=== PATIENT | female | born 1955 | race Caucasian/White ===

== ENCOUNTER 2016-08-28 07:06 | Outpatient (CLI) | payer MEDICAID | END 2016-08-28 07:07 | disposition home or self-care (01) | DX: G25.81 Restless legs syndrome (principal); E66.9 Obesity, unspecified; Z13.6 Encounter for screening for cardiovascular disorders ==

== ENCOUNTER 2016-09-17 10:03 | Outpatient (CLI) | payer MEDICAID | END 2016-09-17 10:04 | disposition home or self-care (01) | DX: R73.01 Impaired fasting glucose (principal) ==

== ENCOUNTER 2016-10-08 10:48 | Outpatient (CLI) | payer MEDICAID, MEDICARE | END 2016-10-08 10:49 | disposition home or self-care (01) | DX: Z12.39 Encounter for other screening for malignant neoplasm of breast (principal); N64.59 Other signs and symptoms in breast; D17.1 Benign lipomatous neoplasm of skin and subcutaneous tissue of trunk | CPT/HCPCS: 76642; G0206 ==

== ENCOUNTER 2017-02-12 09:28 | Outpatient (CLI) | payer MEDICARE | END 2017-02-12 09:29 | disposition home or self-care (01) | LOC: LAB.F 09:28 | PROVIDERS: ATTEND Nurse Practitioner Family | DX: Z78.9 Other specified health status (principal) | CPT/HCPCS: 36415; 86803 ==

== ENCOUNTER 2017-06-18 08:54 | Outpatient (CLI) | payer MEDICARE ==
--- NOTE | 2017-06-20 15:22 | Mammography Report ---
DIGITAL BILATERAL SCREENING MAMMOGRAM: 06/18/2017 COMPARISON: Mammogram of 10/08/2016. INDICATION: Screening mammography. TECHNIQUE: Routine CC and MLO projections were obtained of the breasts. FINDINGS: Parenchymal tissue within both breasts is heterogeneously dense, which may lower the sensi tivity of mammography; however, there are no dominant masses, suspicious microcalcifications, or seco ndary signs of malignancy. In comparison to the previous studies, there are no significant changes. ASSESSMENT: NO MAMMOGRAPHIC EVIDENCE OF MALIGNANCY. NO SIGNIFICANT INTERVAL CHANGES. RECOMMENDATION: Screening mammography is recommended annually. BIRADS category 1 - negative. STANDARD QUALIFYING STATEMENTS 1. This examination was reviewed with the aid of Computed-Aided Detection (CAD). 2. A negative or benign imaging report should not delay biopsy if clinically suspicious findings are present. Consider surgical consultation if warranted. More than 5% of cancers are not identified by i maging. 3. Dense breasts may obscure an underlying neoplasm. JOB #: [id number] EXT JOB #:[id number]
== END 2017-06-18 08:55 | disposition home or self-care (01) ==
LOC: DI 08:54
PROVIDERS: ATTEND Nurse Practitioner Family
DX: Z12.31 Encounter for screening mammogram for malignant neoplasm of breast (principal)
CPT/HCPCS: 77067

== ENCOUNTER 2017-08-22 17:01 | Emergency (ER) | payer MEDICAID, MEDICARE ==
[2017-08-22 17:10] VITALS: BP 135/78
== END 2017-08-22 18:22 | disposition left against medical advice (07) ==
LOC: ED 17:01
DX: Z53.21 Procedure and treatment not carried out due to patient leaving prior to being seen by health care provider (principal)
CPT/HCPCS: 80053; 83690; 85025

== ENCOUNTER 2018-04-14 21:08 | Day surgery (SDC) | payer MEDICARE ==
[2018-04-14] MEDS ORDERED: MORPHINE 10 MG/ML VIAL IVP STA (21:26)
[2018-04-14] MEDS ORDERED: SODIUM CHLORIDE 0.9% 1,000 ML IV ONE ×2 (21:26→22:50)
[2018-04-14] MEDS ORDERED: ONDANSETRON 4 MG/2 ML VIAL IVP STA ×2 (21:26→23:50)
--- NOTE | 2018-04-14 21:29 | ED Physician Documentation ---
PD HPI ABD PAIN - Stated complaint Stated Complaint: ABD PX/N/V - Chief complaint Chief Complaint: Abd Pain - History obtained from History obtained from: Patient - History of Present Illness Timing - onset: Today Timing - details: Gradual onset, Still present Quality: Cramping, Aching Location: RLQ Radiation: Lower back Worsened by: Position, Palpation Associated symptoms: Fever, Nausea, Vomiting. No: Diarrhea, Constipation Similar symptoms before: Has not had sx before Recently seen: Not recently seen - Additional information Additional information: Patient is a 62 year old female who is presenting to the emergency department for right lower quadrant pain, nausea vomiting shaking and chills. Patient states that the symptoms started today and have lasted throughout the day. Patient denies any recent travel, or sick contacts. Review of Systems Constitutional: reports: Chills, Sweats Eyes: reports: Reviewed and negative Cardiac: denies: Chest pain / pressure, Palpitations Respiratory: denies: Dyspnea, Cough GI: reports: Abdominal Pain, Nausea, Vomiting. 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 HEENT: Tonsil/Adenoidectomy - Present Medications Home Medications: Ambulatory Orders Medication Instructions Recorded Confirmed Citalopram [CeleXA] 1 tab PO DAILY 04/14/18 04/14/18 - Allergies Allergies/Adverse Reactions: Allergies Allergy/AdvReac Type Severity Reaction Status Date / Time codeine AdvReac Intermediate Nausea Verified 04/14/18 21:15 PD ED PE NORMAL - Vitals Vital signs reviewed: Yes - General General: Alert and oriented X 3 - HEENT HEENT: Atraumatic - Respiratory Respiratory: No respiratory distress, Clear bilaterally - Derm Derm: Normal color - Extremities Extremities: No deformity - Neuro Neuro: Alert and oriented X 3 Eye Opening: Spontaneous PD ED PE EXPANDED - General General: Alert - HEENT HEENT: Dry mucous membranes - Abdomen Abdomen: Tender to palpation, RLQ Results - Vitals Vitals: Vital Signs - 24 hr 04/14/18 04/14/18 21:14 23:25 Temperature 36.3 C L 36.9 C Heart Rate 105 H 94 Respiratory 20 16 Rate Blood Pressure 151/90 H 171/74 H O2 Saturation 98 94 Oxygen O2 Source Room air - Labs Labs: Laboratory Tests 04/14/18 04/14/18 04/14/18 21:32 21:45 21:45 WBC 13.7 H RBC 5.10 Hgb 15.0 Hct 43.7 MCV 85.7 MCH 29.4 MCHC 34.3 RDW 13.0 Plt Count 229 MPV 8.4 Neut # (Auto) 13.2 H Lymph # (Auto) 0.4 L Coos # (Auto) 0.1 Eos # (Auto) 0.0 Baso # (Auto) 0.0 Absolute Nucleated RBC 0.00 Nucleated RBC % 0.0 Sodium 138 Potassium 3.4 L Chloride 100 L Carbon Dioxide 26 Anion Gap 12.0 BUN 14 Creatinine 0.9 Estimated GFR (MDRD) 63 L Glucose 201 H Lactic Acid Calcium 9.6 Total Bilirubin 1.4 H AST 35 ALT 28 Alkaline Phosphatase 81 Total Protein 8.2 Albumin 4.9 Globulin 3.3 Albumin/Globulin Ratio 1.5 Lipase 31 Urine Color LT. YELLOW Urine Clarity CLEAR Urine pH 7.0 Ur Specific [place] 1.020 Urine Protein TRACE Urine Glucose (UA) 100 H Urine Ketones NEGATIVE Urine Occult Blood NEGATIVE Urine Nitrite NEGATIVE Urine Bilirubin NEGATIVE Urine Urobilinogen 0.2 (NORMAL) Ur Leukocyte Esterase NEGATIVE Ur Microscopic Review NOT INDICATED Urine Culture Comments NOT INDICATED 04/14/18 21:45 WBC RBC Hgb Hct MCV MCH MCHC RDW Plt Count MPV Neut # (Auto) Lymph # (Auto) Coos # (Auto) Eos # (Auto) Baso # (Auto) Absolute Nucleated RBC Nucleated RBC % Sodium Potassium Chloride Carbon Dioxide Anion Gap BUN Creatinine Estimated GFR (MDRD) Glucose Lactic Acid 3.3 H* Calcium Total Bilirubin AST ALT Alkaline Phosphatase Total Protein Albumin Globulin Albumin/Globulin Ratio Lipase Urine Color Urine Clarity Urine pH Ur Specific [place] Urine Protein Urine Glucose (UA) Urine Ketones Urine Occult Blood Urine Nitrite Urine Bilirubin Urine Urobilinogen Ur Leukocyte Esterase Ur Microscopic Review Urine Culture Comments - Rads (name of study) ct abd pelvis Radiology: Final report received (acute appendicitis) PD MEDICAL DECISION MAKING - ED course Complexity details: reviewed old records, reviewed results, re-evaluated patient , considered differential, d/w patient, d/w product/industry consultant ED course: patient was seen and examined at bedside. Iv access was gained and labs were drawn. patient was started on fluid bolus, treated with morphine and zofran. Imaging was ordered. When patient returned from imaging the results were reviewed. patient was found to have acute appendicits. patient was started on zosyn. case was discussed with the numerical control machine tool operator surgeon. Patient was placed in observation for surgery the next day. - Sepsis Event Vital Signs: Vital Signs - 24 hr 04/14/18 04/14/18 21:14 23:25 Temperature 36.3 C L 36.9 C Heart Rate 105 H 94 Respiratory 20 16 Rate Blood Pressure 151/90 H 171/74 H O2 Saturation 98 94 Oxygen O2 Source Room air Departure - Departure Disposition: ED Place in Observation Clinical Impression: Appendicitis, acute Condition: Stable
[2018-04-14 21:35] LABS: BILIRUBIN,URINE NEGATIVE (NEGATIVE); GLUCOSE, URINE (UA) 100 mg/dL (NEGATIVE); KETONES,URINE (UA) NEGATIVE (NEGATIVE); LEUKOCYTE ESTERASE, URINE NEGATIVE (NEGATIVE); NITRITE,URINE NEGATIVE (NEGATIVE); OCCULT BLOOD,URINE NEGATIVE (NEGATIVE); PROTEIN,URINE TRACE mg/dL (NEGATIVE); UROBILINOGEN,URINE 0.2 (NORMAL) E.U./dL (NORMAL)
[2018-04-14 21:36] LABS: CLARITY,URINE CLEAR (CLEAR)
[2018-04-14] MEDS ORDERED: IOPAMIDOL-300 100 ML VIAL ONE (21:46)
[2018-04-14 21:48] LABS: BASOPHILS % (AUTO) 0.2 %; EOSINOPHILS % (AUTO) 0.1 %; LYMPHOCYTES # (AUTO) 0.4 10^3/uL (1.5-3.5); LYMPHOCYTES % (AUTO) 3.2 %; MEAN CORPUSCULAR HEMOGLOBIN 29.4 pg (27.0-31.0); MEAN CORPUSCULAR HGB CONC 34.3 g/dL (32.0-36.0); MEAN CORPUSCULAR VOLUME 85.7 fL (81.0-99.0); MEAN PLATELET VOLUME 8.4 fL (7.9-10.8); MONOCYTES # (AUTO) 0.1 10^3/uL (0.0-1.0); MONOCYTES % (AUTO) 0.6 %; NEUTROPHILS # (AUTO) 13.2 10^3/uL (1.5-6.6); NEUTROPHILS % (AUTO) 95.9 %; PLT - PLATELET COUNT 229 10^3/uL (130-450); WHITE BLOOD COUNT 13.7 x10^3/uL (4.8-10.8)
[2018-04-14 22:02] LABS: ALBUMIN 4.9 g/dL (3.2-5.5); ALBUMIN/GLOBULIN RATIO 1.5 (1.0-2.2); BILIRUBIN,TOTAL 1.4 mg/dL (0.2-1.0); CALCIUM 9.6 mg/dL (8.5-10.3); CREATININE 0.9 mg/dL (0.4-1.0); TOTAL PROTEIN 8.2 g/dL (6.7-8.2)
[2018-04-14] MEDS ORDERED: IOPAMIDOL-300 100 ML VIAL IVP ONE (22:25)
--- NOTE | 2018-04-14 22:48 | CT Report ---
Procedure Date: 04/14/2018 Accession Number: [id number] / [id number] Procedure: CT - Abdomen/Pelvis W/ CPT Code: FULL RESULT: EXAM: CT ABDOMEN AND PELVIS WITH CONTRAST. EXAM DATE: 04/14/2018 10:26 PM. CLINICAL HISTORY: Right lower quadrant pain, fever vomiting. COMPARISONS: Abdomen 01/15/2012. TECHNIQUE: Routine helical CT imaging was performed through the abdomen and pelvis. IV contrast: Yes . Enteric contrast: No . Reconstructions: Coronal and sagittal. In accordance with CT protocol optimization, one or more of the following dose reduction techniques were utilized for this exam: automated exposure control, adjustment of mA and/or KV based on patient size, or use of iterative reconstructive technique. FINDINGS: Lung Bases: Unremarkable. Liver: Scattered cysts and/or hemangiomas. No definitively suspicious masses. Gallbladder/Bile Ducts: Unremarkable. Spleen: Unremarkable. Pancreas: Unremarkable. Adrenal Glands: Unremarkable. Kidneys: Unremarkable. No suspicious masses or hydronephrosis. Peritoneal Cavity/Bowel: Abnormal inflamed appendix is best visualized on axial images 66 through 69 in the anterolateral right pelvis with a maximum diameter of 11 mm and mild surrounding inflammatory changes. Appendicoliths present. No gross perforation or abscess. Bowel otherwise appears unremarkable. Pelvic Organs: Bladder, uterus, and adnexa appear unremarkable. Vasculature: No aneurysms or other significant abnormality. Bones: No significant abnormality. Other: None. IMPRESSION: Acute appendicitis without apparent complication. RADIA
[2018-04-14] MEDS ORDERED: PIPERACILLIN/TAZOBACTAM 4.5 GM in SODIUM CHLORIDE 0.9% MINIBAG 100 ML IV STA (23:28)
[2018-04-15] MEDS ORDERED: LACTATED RINGERS 1,000 ML IV SCH (01:00)
--- NOTE | 2018-04-15 01:44 | CONSULTATION NOTE ---
Referring Provider Name of Referring Provider:: Dr. Raoul Adan Consult Date: 04/14/18 Chief Complaint - Chief Complaint Chief Complaint: RLQ pain History of Present Illness - Admitted From Admitted From:: [facility] ED to outpatient - History Obtained From Records Reviewed: Yes History obtained from: Patient and chart Exam Limitations: None - History of Present Illness HPI Comment/Other: Dr. Raoul Adan called me on consultation to evaluate this very pleasant 62 -year-old female for a less than 24 hour history of right lower quadrant pain associated with nausea, vomiting and chills. There is no history of antecedent travel or anyone else sick at home. The pain is worsened with motion and is not worsened (not alleviated) with standing still. The patient is not particularly hungry. 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 HEENT: reports: Tonsil/Adenoidectomy Meds/Allgy - Home Medications Home Medications: Ambulatory Orders Medication Instructions Recorded Confirmed Citalopram [CeleXA] 1 tab PO DAILY 04/14/18 04/14/18 - Allergies Allergies/Adverse Reactions: Allergies Allergy/AdvReac Type Severity Reaction Status Date / Time codeine AdvReac Intermediate Nausea Verified 04/14/18 21:15 Review of Systems - Constitutional Constitutional: reports: Fever, Chills, Poor appetite (=) - Gastrointestinal Gastrointestinal: reports: Abdominal pain (RLQ), Nausea, Vomiting Exam - Vital Signs Reviewed Vital Signs: Yes Vital Signs: Vital Signs x48h Temp Pulse Resp BP Pulse Ox 04/14/18 23:25 36.9 C 94 16 171/74 H 94 04/14/18 21:14 36.3 C L 105 H 20 151/90 H 98 - Physical Exam General Appearance: positive: No acute distress, Lethargic Eyes Bilateral: positive: No lid inflammation, Conjunctivae nml, No scleral icterus ENT: positive: Dry mucous membranes Neck: positive: Trachea midline Respiratory: positive: Chest non-tender, No respiratory distress, Breath sounds nml Cardiovascular: positive: Regular rate & rhythm (Slightly quick at 95.) Abdomen: positive: Nml bowel sounds, Tenderness (In RLQ at McBurneys point.) Extremities: positive: Nml appearance Neurologic/Psychiatric: positive: Oriented x3 Conclusion/Plan - Diagnosis Diagnosis: Acute appendicitis. - Plan Plan: Laparoscopic appendectomy, possible open appendectomy. The indications, procedure, alternatives including no surgery, possible risks including infection (deep or superficial), bleeding requiring transfusion (with all of its risks), and were fully explained to the patient and all questions answered. I also explained the pathophysiology. I explained that following the surgery I did not want her lifting anything over 15 pounds for 6 weeks to allow for optimal healing and to decrease the likelihood that a hernia would occur. All questions were fully answered. Verbal and written consent was obtained. The patient, in preparation for surgery will be nothing by mouth, and receive 3.375 g of Zosyn with induction. I asked her to contact me with any surgical questions and her concerns and she stated that she would. I asked her to let me know if there is any way we can make her stay at [facility] more comfortable and she stated that she would let me know. The plan is to do this operation as an outpatient procedure and to discharge her home following the procedure. 45 minutes of [id number] time spent with the patient, over 80% in discussion, coordination of her care, and completion of the requisite paperwork - Lab Results Lab results reviewed: Yes Fish Bones: 04/14/18 21:45 04/14/18 21:45 - Diagnostic Imaging Results Diagnostic Imaging Results: positive: Final report reviewed, Read independently
[2018-04-15] MEDS ORDERED: PIPERACILLIN/TAZOBACTAM 3.375 GM in SODIUM CHLORIDE 0.9% MINIBAG 100 ML IV SCH (06:00)
--- NOTE | 2018-04-15 06:59 | ANESTHESIA ---
Pre-Anesthesia VS, & Labs - Diagnosis Diagnosis Acute appendicitis. - Procedure Laparoscopic Appendectomy Vital Signs: Temp Pulse Resp BP Pulse Ox 36.9 C 94 16 171/74 H 94 04/14/18 23:25 04/14/18 23:25 04/14/18 23:25 04/14/18 23:25 04/14/18 23:25 Height 5 ft 2 in Weight (kg) 88.451 kg Body Mass Index 35.6 - NPO >8 hours - Is Patient ?: No - Lab Results Lab results reviewed: Yes Fish Bones: 04/14/18 21:45 04/14/18 21:45 Home Medications and Allergies Home Medications: Ambulatory Orders Medication Instructions Recorded Confirmed Citalopram [CeleXA] 1 tab PO DAILY 04/14/18 04/14/18 Allergies/Adverse Reactions: Allergies Allergy/AdvReac Type Severity Reaction Status Date / Time codeine AdvReac Intermediate Nausea Verified 04/14/18 21:15 Anes History & Medical History - Anesthetic History Anesthesia Complications: reports: No previous complications Family history of Anesthesia Complications: Denies Family history of Malignant Hyperthermia: Denies - Medical History Cardiovascular: reports: Hypertension Pulmonary: reports: None Gastrointestinal: reports: GERD (Occassional), Hiatal hernia, Hemorrhoids Urinary: reports: None Neuro: reports: None Musculoskeletal: reports: Osteoarthritis Endocrine/Autoimmune: reports: None Blood Disorders: reports: None Skin: reports: None Smoking Status: Former smoker (quit 35 years ago) Psychosocial: reports: Depression - Surgical History General: EGD, Colonoscopy Eyes Ears Nose Throat (EENT): Tonsil/Adenoidectomy Gynecologic: Oophrectomy Orthopedic: Knee replacement, Rotator cuff repair Results - EKG Results EKG Comparison: No prior EKG Plan Anesthesia Type: General Consent for Procedure(s) Verified and Reviewed: Yes Code Status: Attempt Resuscitation ASA classification: 2-Mild systemic disease Is this case an emergency?: Yes
[2018-04-15] MEDS ORDERED: BUPIVACAINE 0.5% PF 30 ML VIAL ONE (07:08)
[2018-04-15] MEDS ORDERED: LACTATED RINGERS 1,000 ML IV ONE ×2 (07:20→08:16)
[2018-04-15] MEDS ORDERED: PROPOFOL 200 MG/20 ML VIAL IVP ONE (08:00)
[2018-04-15] MEDS ORDERED: MIDAZOLAM 2 MG/2 ML VIAL IVP ONE (08:00)
[2018-04-15] MEDS ORDERED: fentaNYL 250 MCG/5 ML VIAL IVP ONE (08:00)
[2018-04-15] MEDS ORDERED: SUCCINYLCHOLINE 200 MG/10 ML VIAL IVP ONE (08:00)
[2018-04-15] MEDS ORDERED: ROCURONIUM 50 MG/5 ML VIAL IVP ONE (08:00)
[2018-04-15] MEDS ORDERED: DEXAMETHASONE 4 MG/ML VIAL IVP ONE (08:00)
[2018-04-15] MEDS ORDERED: LIDOCAINE-MPF 2% 5 ML VIAL IM ONE (08:00)
[2018-04-15] MEDS ORDERED: ePHEDrine 50 MG/ML VIAL IVP ONE (08:00)
[2018-04-15] MEDS ORDERED: BUPIVACAINE 0.5% PF 30 ML VIAL SUBQ ONE (08:30)
--- NOTE | 2018-04-15 09:23 | OPERATIVE REPORT ---
Operative Report - General Procedure Date: 04/15/18 Planned Procedure: Laparoscopic appendectomy Pre-Op Diagnosis: Acute appendicitis Procedure Performed: Laparoscopic appendectomy and umbilical herniorrhaphy Post Op Diagnosis: Acute nonperforated appendicitis and umbilical hernia - Procedure Note Primary Surgeon: Leonardo Carlos MD Anesthesia Provider: Anuj Marvin CRNA Anesthesia Technique: General ET tube, Local (30 mL of half percent Marcaine) IV Fluids (mL): 800 Estimated Blood Loss (mL): 5 Complications: None. - Other Other Information/Narrative: OPERATIVE DESCRIPTION/REPORT: After verbal and written informed consent was obtained detailing the risks of infection, bleeding requiring transfusion with its risks, and , and after I met with the patient confirming the surgery and the site of the surgery, the patient was brought to the operative suite and placed supine on the operating table. Great care was taken to avoid pressure points to prevent pressure necrosis or nerve injury. Monitoring devices were applied along with TEDs and pneumatic compressive stockings (to prevent DVT). The patient received preoperative antibiotics for surgical prophylaxis. Anuj Marvin CRNA sedated and anesthetized the patient for the entire procedure. The patient was prepped and draped in the usual sterile manner. With the patient draped my initials were clearly visible. A "time in" then confirmed that the patient was identified with 3 identifiers (name, date and medical record number), the history and physical was in the chart, the signed consent confirming the procedure was in the chart, the patient was in the correct position, the aforementioned prophylactic measures were in place or given, we had the correct personnel and equipment to complete the procedure and that anesthesia, surgery and nursing were given an opportunity to express any concerns. With the agreement of everyone in the room, we proceeded with the operation. A 2 cm incision was made just to the right of the umbilicus due to what had been removed out of the patient's umbilicus during the prep. The fascia was then cleared of subcutaneous tissue using a tonsil clamp and a small umbilical hernia was noted. I used the hernia defect to gain entry into the abdominal cavity without incident. A 12 mm blunt tipped balloon tipped Diamante port was placed into the abdomen and the balloon inflated to keep it in place. The pneumoperitoneum was then established using carbon dioxide insufflation to a steady state pressure of 15 mmHg. Two additional 5 mm ports were placed in the midline above and below the umbilicus. The patient was then rotated slightly to their left and slightly head down ( Trendelenberg). A small adhesion was photographed and cut. The appendix was clearly identified and noted to be thickened and clearly consistent with acute appendicitis. The end of the appendix was grasped with a Prestige grasper and lifted anteriorly thus revealing the appendiceal mesentery. The mesentery was taken using sequential application of the Ligasure until the base of the appendix was visualized without any adherent tissue. The base of the appendix was then stapled and transected using a laparoscopic vascular stapler. Visualization of the staple line revealed absolutely no bleeding or leak of bowel contents. Photographs were taken. The appendix was then place into an endopouch for the remainder of the case. The patient was then rotated to lie flat. The fascia and skin were then injected with the 30 cc of % marcaine for pain control. The insufflation was released and the ports removed. With the removal of the umbilical port the Endopouch containing the appendix was also removed. The fascial defect was then approximated using two 0-Vicryl figure-8 sutures taking care to bury the knots thus repairing the umbilical hernia. The skin incisions were approximated with 4-0 Monocryl in a subcuticular fashion. The surgical prep was removed, the skin was prepped with benzoin and steristrips were applied. A dressing was applied. At this point a time out was performed that confirmed that all the counts were correct, the procedure that was performed, the blood loss, the urine output, the IV fluids administered, and the patients condition. Having tolerated the procedure well, the patient was subsequently extubated and taken to recovery room in good and stable condition. [employer] disclaimer: This document was created in part using voice recognition technology. Because of the inherent limitations of the system ([employer]'s [employer] D[employer]ate user manual states that the licensee understands that speech recognition is a statistical process and that recognition errors are inherent in the process), occasional same sounding word substitutions and grammatical errors do occur and persist despite proofreading. Please read this document for context.
[2018-04-15] MEDS ORDERED: ACETAMINOPHEN 1,000 MG/100 ML 100 ML IV ONE (09:31)
[2018-04-15 10:59] VITALS: BP 118/68
== END 2018-04-15 00:31 | disposition home or self-care (01) ==
LOC: ED 21:08 → SDS 04-15 00:30
PROVIDERS: ATTEND Surgery
PROC: 0DTJ4ZZ Resection of Appendix, Percutaneous Endoscopic Approach (ICD-10-PCS; principal; 2018-04-15 07:30)
DX: K35.80 Unspecified acute appendicitis (principal); K42.9 Umbilical hernia without obstruction or gangrene; I10 Essential (primary) hypertension; K21.9 Gastro-esophageal reflux disease without esophagitis; K44.9 Diaphragmatic hernia without obstruction or gangrene; F32.9 Major depressive disorder, single episode, unspecified; Z79.899 Other long term (current) drug therapy; Z87.891 Personal history of nicotine dependence
CPT/HCPCS: 36415; 44970; 74177; 80053; 81003; 83605; 83690; 85025; 96361; 96365; 96366; 96375; 96376; 99284; J0131; J0330; J3010; J7120; Q9967; 81001; 87086; 96367

== ENCOUNTER 2018-06-23 19:06 | Emergency (ER) | payer MEDICARE ==
[2018-06-23 19:18] VITALS: BP 177/102
--- NOTE | 2018-06-23 20:14 | ED Physician Documentation ---
PD HPI UPPER EXT INJURY - Stated complaint Stated Complaint: GLF/RT ARM PX - Chief complaint Chief Complaint: Ext Problem - History obtained from History obtained from: Patient - History of Present Illness Location: Right (She tripped over her shoes and fell with her arm out hitting the floor. She has severe below the shoulder. No other injuries. 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 : None HEENT: None Psych: None Musculoskeletal: Osteoarthritis Derm: None - Past Surgical History Past Surgical History: Yes General: Appendectomy, Colonoscopy, EGD Ortho: Knee replacement, 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 HEENT: Tonsil/Adenoidectomy - Present Medications Home Medications: Ambulatory Orders Medication Instructions Recorded Confirmed Citalopram [CeleXA] 1 tab PO DAILY 04/14/18 04/14/18 - Allergies Allergies/Adverse Reactions: Allergies Allergy/AdvReac Type Severity Reaction Status Date / Time codeine AdvReac Intermediate Nausea Verified 06/23/18 19:18 - Social History Does the pt smoke?: No Smoking Status: Never smoker Does the pt drink ETOH?: No Does the pt have substance abuse?: No - Immunizations Immunizations are current?: Yes - POLST Patient has POLST: No PD ED PE NORMAL - Vitals Vital signs reviewed: Yes - General General: Alert and oriented X 3, No acute distress - Neck Neck: Supple, no meningeal sign, No bony TTP - Cardiac Cardiac: RRR, No murmur - Respiratory Respiratory: No respiratory distress - Extremities Extremities: Other (Quite tender over the upper humerus on the right, unable to range the shoulder at all. Normal sensation over the deltoid and in all areas of the hand and flexion and extension at the wrist is normal as well as thumb extension.) - Neuro Neuro: Alert and oriented X 3, Normal speech - Psych Psych: Normal mood, Normal affect Results - Vitals Vitals: Vital Signs - 24 hr 06/23/18 19:10 Temperature 36.8 C Heart Rate 89 Respiratory 18 Rate Blood Pressure 177/102 H O2 Saturation 99 Oxygen O2 Source Room air Departure - Departure Disposition: 01 Home, Self Care Clinical Impression: Closed fracture of right proximal humerus Qualifiers: Encounter type: initial encounter Fracture morphology: other fracture Fracture alignment: nondisplaced Qualified Code(s): S42.294A - Other nondisplaced fracture of upper end of right humerus, initial encounter for closed fracture Condition: Good Record reviewed to determine appropriate education?: Yes Instructions: Humerus Fx Follow-Up: [facility] [Provider Group] - Within 1 week Comments: Your blood pressure was elevated today on check into the emergency department. This does not mean that you have hypertension, it is a common phenomenon to come to the emergency department and have elevated blood pressure. I recommend that you see your primary care physician within the week to have it rechecked when you are feeling better.
--- NOTE | 2018-06-23 20:19 | XRAY Report ---
Reason: fell foward and injuring r shoulder. Procedure Date: 06/23/2018 Accession Number: [id number] / [id number] Procedure: XR - Shoulder 3 View RT CPT Code: FULL RESULT: EXAM: RIGHT SHOULDER RADIOGRAPHY EXAM DATE: 06/23/2018 07:54 PM. CLINICAL HISTORY: Fall, pain COMPARISON: SHOULDER 3 VIEW LT 03/31/2014 9:52 AM. TECHNIQUE: 3 views. FINDINGS: Bones: There is comminuted fracture through the proximal right humerus. There is mild displacement. No clear evidence of extent of the tuberosities. Joints: No evidence of dislocation. Soft Tissues: No unexpected soft tissue findings. IMPRESSION: Transversely oriented, mildly displaced fracture through the proximal right humerus. No evidence of dislocation. RADIA
== END 2018-06-23 20:19 | disposition home or self-care (01) ==
LOC: ED 19:06
DX: I10 Essential (primary) hypertension (principal); S42.201A Unspecified fracture of upper end of right humerus, initial encounter for closed fracture; W01.0XXA Fall on same level from slipping, tripping and stumbling without subsequent striking against object, initial encounter
CPT/HCPCS: 99283

== ENCOUNTER 2018-11-27 08:00 | Outpatient (CLI) | payer MEDICARE ==
[2018-11-27 10:15] LABS: BASOPHILS # (AUTO) 0.1 10^3/uL (0.0-0.1); BASOPHILS % (AUTO) 1.1 %; EOSINOPHILS # (AUTO) 0.1 10^3/uL (0.0-0.7); EOSINOPHILS % (AUTO) 2.3 %; HGB - HEMOGLOBIN 13.8 g/dL (12.0-16.0); LYMPHOCYTES # (AUTO) 2.1 10^3/uL (1.5-3.5); LYMPHOCYTES % (AUTO) 35.8 %; MEAN CORPUSCULAR HEMOGLOBIN 29.4 pg (27.0-31.0); MEAN CORPUSCULAR HGB CONC 33.9 g/dL (32.0-36.0); MEAN CORPUSCULAR VOLUME 86.7 fL (81.0-99.0); MEAN PLATELET VOLUME 9.5 fL (7.9-10.8); MONOCYTES # (AUTO) 0.6 10^3/uL (0.0-1.0); MONOCYTES % (AUTO) 9.6 %; NEUTROPHILS # (AUTO) 3.1 10^3/uL (1.5-6.6); NEUTROPHILS % (AUTO) 51.2 %; PLT - PLATELET COUNT 227 10^3/uL (130-450); RED BLOOD COUNT 4.69 10^6/uL (4.20-5.40); RED CELL DISTRIBUTION WIDTH 13.1 % (12.0-15.0)
[2018-11-27 10:27] LABS: ALBUMIN 4.2 g/dL (3.2-5.5); ALBUMIN/GLOBULIN RATIO 1.4 (1.0-2.2); ALKALINE PHOSPHATASE 77 IU/L (42-121); ALT ALANINE AMINOTRANSFERASE 24 IU/L (10-60); AST ASPARTATE AMINOTRANSFERASE 26 IU/L (10-42); BILIRUBIN,TOTAL 1.2 mg/dL (0.2-1.0); BUN - BLOOD UREA NITROGEN 16 mg/dL (6-20); CALCIUM 9.5 mg/dL (8.5-10.3); CARBON DIOXIDE - CO2 27 mmol/L (21-32); CHLORIDE 100 mmol/L (101-111); CHOL/HDL RATIO 5.9 (<4.4); CHOLESTEROL 252 mg/dL; CREATININE 0.9 mg/dL (0.4-1.0); GFR - MDRD 63 (>89); GLUCOSE 121 mg/dL (70-100); HDL CHOLESTEROL 43 mg/dL; LDL CHOLESTEROL,CALCULATED 180 mg/dL; LDL/HDL RATIO 4.2 (<4.4); SODIUM 139 mmol/L (135-145); TOTAL PROTEIN 7.3 g/dL (6.7-8.2); VLDL CHOLESTEROL 29 mg/dL
[2018-11-27 10:44] LABS: HEMOGLOBIN A1C 0.55 g/dL; HEMOGLOBIN A1C % 5.5 % (4.6-6.2)
== END 2018-11-27 23:59 | disposition home or self-care (01) ==
LOC: LAB.F 08:00
PROVIDERS: ATTEND Nurse Practitioner Family
DX: Z13.6 Encounter for screening for cardiovascular disorders (principal); R73.01 Impaired fasting glucose; Z13.220 Encounter for screening for lipoid disorders
CPT/HCPCS: 36415; 80053; 80061; 83036; 83721; 84443; 85025

== ENCOUNTER 2018-12-05 10:41 | Outpatient (CLI) | payer MEDICARE ==
--- NOTE | 2018-12-08 10:40 | Mammography Report ---
Reason: SCREENING MAMMO FOR BREAST CANCER Procedure Date: 12/05/2018 Accession Number: [id number] / [id number] Procedure: JAKE - Screening Mammo w/Adalid CPT Code: FULL RESULT: EXAM: Screening Mammo w/Adalid DATE: 12/05/2018 11:23 AM CLINICAL HISTORY: Screening examination. TECHNIQUE: (B) - Bilateral CC and MLO views were obtained. COMPARISON: 06/18/2017 PARENCHYMAL PATTERN: (A) - The breasts demonstrate scattered fibroglandular densities bilaterally. FINDINGS: There are no suspicious masses, calcifications, or areas of distortion. IMPRESSION: Negative examination. BI-RADS category 1. RECOMMENDATION: (ANNUAL) - Recommend routine annual screening mammography. BI-RADS CATEGORY: (1) - Negative. STANDARD QUALIFYING STATEMENTS: 1. This examination was not reviewed with the aid of Computer-Aided Detection (CAD). 2. A negative or benign imaging report should not preclude biopsy if clinically suspicious findings are present. 3. Dense breasts may obscure an underlying neoplasm. 4. This examination was reviewed with the aid of 3D breast imaging (tomosynthesis).
== END 2018-12-05 10:42 | disposition home or self-care (01) ==
LOC: DI 10:41
PROVIDERS: ATTEND Nurse Practitioner Family
DX: Z12.31 Encounter for screening mammogram for malignant neoplasm of breast (principal)
CPT/HCPCS: 77063; 77067

== ENCOUNTER 2019-03-09 10:18 | Outpatient (CLI) | payer MEDICARE ==
[2019-03-09 10:52] LABS: BASOPHILS # (AUTO) 0.1 10^3/uL (0.0-0.1); BASOPHILS % (AUTO) 0.8 %; EOSINOPHILS # (AUTO) 0.1 10^3/uL (0.0-0.7); HGB - HEMOGLOBIN 13.5 g/dL (12.0-16.0); LYMPHOCYTES # (AUTO) 2.1 10^3/uL (1.5-3.5); LYMPHOCYTES % (AUTO) 34.2 %; MEAN CORPUSCULAR HEMOGLOBIN 29.3 pg (27.0-31.0); MEAN CORPUSCULAR HGB CONC 33.1 g/dL (32.0-36.0); MEAN CORPUSCULAR VOLUME 88.7 fL (81.0-99.0); MEAN PLATELET VOLUME 10.8 fL (7.9-10.8); MONOCYTES # (AUTO) 0.5 10^3/uL (0.0-1.0); MONOCYTES % (AUTO) 8.2 %; NEUTROPHILS # (AUTO) 3.3 10^3/uL (1.5-6.6); NEUTROPHILS % (AUTO) 54.5 %; PLT - PLATELET COUNT 194 10^3/uL (130-450); RED CELL DISTRIBUTION WIDTH 11.9 % (12.0-15.0)
[2019-03-09 11:09] LABS: ALBUMIN 4.4 g/dL (3.2-5.5); ALBUMIN/GLOBULIN RATIO 1.4 (1.0-2.2); BILIRUBIN,TOTAL 0.7 mg/dL (0.2-1.0); CALCIUM 9.5 mg/dL (8.5-10.3); CREATININE 0.9 mg/dL (0.4-1.0); TOTAL PROTEIN 7.5 g/dL (6.7-8.2)
== END 2019-03-09 10:19 | disposition home or self-care (01) ==
LOC: LAB 10:18
PROVIDERS: ATTEND Obstetrics & Gynecology
DX: Z01.818 Encounter for other preprocedural examination (principal); D06.9 Carcinoma in situ of cervix, unspecified
CPT/HCPCS: 36415; 80053; 85025; 86850; 86900; 86901; 93005

== ENCOUNTER 2019-03-10 07:37 | Day surgery (SDC) | payer MEDICARE ==
[2019-03-10] MEDS ORDERED: CEFAZOLIN SODIUM IN 0.9 % NACL 2 GM/100 ML BAG IV ONE (08:00)
[2019-03-10] MEDS ORDERED: LACTATED RINGERS 1,000 ML IV ONE ×2 (08:26→11:30)
[2019-03-10] MEDS ORDERED: BUPIVACAINE 0.25%-EPI 1:200000 PF 30 ML VIAL ONE (09:34)
--- NOTE | 2019-03-10 09:34 | ANESTHESIA ---
Pre-Anesthesia VS, & Labs - Diagnosis JOHAN III - Procedure total laparoscopic hysterectomy with bilateral salphingoopherectomy, cysto Vital Signs: Temp Pulse Resp BP Pulse Ox 36.1 C L 62 18 153/81 H 96 03/10/19 07:55 03/10/19 07:55 03/10/19 07:55 03/10/19 07:55 03/10/19 07:55 Height 5 ft 2 in Weight (kg) 84.2 kg Body Mass Index 34.7 - NPO >8 hours - Is Patient ?: No Home Medications and Allergies Citalopram [CeleXA] 1 tab PO DAILY 04/14/18 Allergies/Adverse Reactions: Allergies Allergy/AdvReac Type Severity Reaction Status Date / Time codeine AdvReac Intermediate Nausea Verified 06/23/18 19:18 Anes History & Medical History - Anesthetic History Anesthesia Complications: reports: No previous complications - Medical History Cardiovascular: reports: Hypertension Pulmonary: reports: None Gastrointestinal: reports: GERD, Hiatal hernia Urinary: reports: None Neuro: reports: None Musculoskeletal: reports: None Endocrine/Autoimmune: reports: None Blood Disorders: reports: None Skin: reports: None Smoking Status: Never smoker - Surgical History General: Appendectomy, Colonoscopy, EGD Eyes Ears Nose Throat (EENT): Tonsil/Adenoidectomy Gynecologic: Oophrectomy Orthopedic: Knee replacement, Rotator cuff repair Exam General: Alert Dental: WNL, Other (filling, intact) Mouth Opening: Greater than 4 Fingerbreadths Mallampati classification: II Thyromental Distance: greater than 6 cm Respiratory: Lungs clear Cardiovascular: Regular rate, Normal S1, Normal S2 Mental/Cognitive Status: Alert/Oriented X3 Plan Anesthesia Type: General Consent for Procedure(s) Verified and Reviewed: Yes Code Status: Attempt Resuscitation ASA classification: 2-Mild systemic disease Is this case an emergency?: No
[2019-03-10] MEDS ORDERED: METHYLENE BLUE 0.5% 50 MG/10 ML AMPULE ONE (09:36)
[2019-03-10] MEDS ORDERED: MIDAZOLAM 2 MG/2 ML VIAL IVP ONE (11:33)
[2019-03-10] MEDS ORDERED: KETOROLAC 30 MG/ML VIAL IVP ONE (11:33)
[2019-03-10] MEDS ORDERED: ONDANSETRON 4 MG/2 ML VIAL IVP ONE (11:33)
[2019-03-10] MEDS ORDERED: DEXAMETHASONE 4 MG/ML VIAL IVP ONE (11:33)
[2019-03-10] MEDS ORDERED: ePHEDrine 50 MG/ML VIAL IVP ONE (11:33)
[2019-03-10] MEDS ORDERED: GLYCOPYRROLATE 1 MG/5 ML VIAL IVP ONE (11:33)
[2019-03-10] MEDS ORDERED: ACETAMINOPHEN 1,000 MG/100 ML 100 ML IV ONE (11:33)
[2019-03-10] MEDS ORDERED: PROPOFOL 200 MG/20 ML VIAL IVP ONE (11:33)
[2019-03-10] MEDS ORDERED: NEOSTIGMINE 1 MG/1 ML 10 ML MDV IVP ONE (11:33)
[2019-03-10] MEDS ORDERED: fentaNYL 250 MCG/5 ML VIAL IVP ONE (11:33)
[2019-03-10] MEDS ORDERED: ROCURONIUM 50 MG/5 ML VIAL IVP ONE (11:33)
[2019-03-10] MEDS ORDERED: oxyCODONE 5 MG TABLET PO PRN (12:39)
[2019-03-10] MEDS ORDERED: HYDROmorphone 0.5 MG/0.5 ML SYRINGE IVP PRN (12:39)
[2019-03-10] MEDS ORDERED: ONDANSETRON 4 MG/2 ML VIAL IVP PRN (12:39)
--- NOTE | 2019-03-10 12:52 | OPERATIVE REPORT ---
Operative Report - General Procedure Date: 03/10/19 Planned Procedure: TLH with BSO and cysto Pre-Op Diagnosis: JOHAN III Procedure Performed: TLH with LSO and cysto Post Op Diagnosis: Same - Procedure Note Primary Surgeon: Shaun Thurman MD Secondary Surgeon: Cassie Shane MD Anesthesia Provider: Brianda Cullen CRNA Anesthesia Technique: General ET tube Pathology: Uterus with left overy IV Fluids (mL): 1,300 Estimated Blood Loss (mL): 25 Urine Output (mL): 500 Indications: JOHAN III Complications: none - Other Other Information/Narrative: Dictation # [id number]
--- NOTE | 2019-03-10 14:03 | OPERATIVE REPORT ---
DATE OF SERVICE: 03/10/2019 Physician: Shaun Thurman MD PREOPERATIVE DIAGNOSIS: Cervical intraepithelial neoplasia 3 on LEEP with glandular invasion. POSTOPERATIVE DIAGNOSIS: Cervical intraepithelial neoplasia 3 on LEEP with glandular invasion. PROCEDURE: Total laparoscopic hysterectomy with left salpingo-oophorectomy and cystoscopy. SURGEON: Shaun Thurman MD RESPIRATORY MEDICINE PHYSICIAN: Alesha Shane MD ANESTHESIA PROVIDER: Agustina Cullen CRNA ANESTHETIC: General via endotracheal tube. ESTIMATED BLOOD LOSS: 25 mL IV FLUIDS: 1300 mL URINE OUTPUT: 500 mL FINDINGS: Upon entering the abdominal cavity, there was evidence of an absent right tube and ovary. There was no scar tissue noted at this time. The appendix was surgically absent. There were minimal adhesions noted. Cystoscopy showed evidence of good urine flow through each ureter. PROCEDURE: Following adequate endotracheal anesthesia, the patient was placed in the supine position in Jamey stirrups. At this point, she was prepped and draped in the usual fashion. A timeout was performed, in which the patient's concerns were identified. A speculum was placed in the vagina. The cervix was visualized, grasped with a single-tooth tenaculum. It was then sounded, then dilated up to 7 mm. A VCare uterine manipulator was then inserted. There was some difficulty placing the cup; however, this was accomplished. 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 At this point, the peritoneal cavity was inspected and there was evidence of minimal adhesions. The VCare manipulator was protruding thru in the left cornua of the uterus. The right tube and ovary, absent, the left tube and ovary appeared to be postmenopausal. At this point, 2 additional ports were placed, both in the left and right lower quadrants following injection with 0.25% Marcaine and then skin incision with a #11 blade. Both of these were placed atraumatically. The right ureter was identified, and following this, the infundibulopelvic ligament was doubly cauterized and transected with the LigaSure. The round ligament was likewise doubly cauterized and then transected. The anterior leaf of the broad ligament was then opened and following this, the anterior leaf was cauterized and transected with the LigaSure. This was carried down to the internal os of the cervix and then traversing across the lower uterine segment. A bladder flap was developed utilizing the LigaSure. The uterine vessels on the right hand side were cauterized and transected. Care was taken to avoid any injury to the ureters. At this point, the left hand side was treated in a similar fashion, the ureter was first identified through the peritoneal wall; however, there was some fat making this difficult. The infundibulopelvic ligament was cauterized twice and transected with the LigaSure. This was then carried across the mesosalpinx and then the round ligament was doubly cauterized and transected. The anterior leaf of the broad ligament was then isolated and then divided utilizing LigaSure. This side was done by Dr. Shane. The uterine vessels on the left hand side were identified, cauterized, and transected. The cup of the VCare was easily palpated through the anterior fornix. Care was taken to take the bladder off the upper vaginal area. The vagina was then entered utilizing Harmonic scalpel and then the uterus was amputated from the apex of the vagina. the right-hand side was done by myself, Dr. Thurman. The left hand side was done by Dr. Shane. At this point, the uterus was brought into the vagina; however, because of its small size, it could not maintain a pneumoperitoneum. So an Asepto bulb was then placed in the vagina to achieve occlusion. The apex of the vagina was then closed utilizing an Endo Stitch with V-Loc suture. The total apex of the vagina was noted to be closed at this point. At this point, the right lower quadrant incision, which had been extended to a 10 mm incision, was closed utilizing a Matt-Aldair. The incisions were all closed using 4-0 Monocryl subcuticular and then Dermabond utilized. A cystoscopy performed showed evidence of good ureteral jets through both ureteral orifices. Patient tolerated the procedure well and was taken to recovery in stable condition. Sponge and needle counts were correct. TD: 03/10/2019 13:04 TJ
[2019-03-10] MEDS ORDERED: SODIUM CHLORIDE FLUSH 0.9% 10 ML SYRINGE ONE (17:10)
[2019-03-10 18:26] VITALS: BP 151/77
== END 2019-03-10 19:30 | disposition home or self-care (01) ==
LOC: SDS 07:37 → MS2 12:51 → SDS 19:30
PROVIDERS: ATTEND Obstetrics & Gynecology
PROC: 0UT14ZZ Resection of Left Ovary, Percutaneous Endoscopic Approach (ICD-10-PCS; 2019-03-10)
PROC: 0UT64ZZ Resection of Left Fallopian Tube, Percutaneous Endoscopic Approach (ICD-10-PCS; 2019-03-10)
PROC: 0UT94ZZ Resection of Uterus, Percutaneous Endoscopic Approach (ICD-10-PCS; principal; 2019-03-10 09:00)
PROC: 0UTC4ZZ Resection of Cervix, Percutaneous Endoscopic Approach (ICD-10-PCS; 2019-03-10 09:00)
DX: D06.9 Carcinoma in situ of cervix, unspecified (principal); I10 Essential (primary) hypertension; K21.9 Gastro-esophageal reflux disease without esophagitis
CPT/HCPCS: 58571; A9270; J0131; J0690; J3010; J7120

== ENCOUNTER 2020-04-20 13:20 | Outpatient (CLI) | payer MEDICARE ==
[2020-04-20 14:39] LABS: HEMOGLOBIN A1c% 5.6 % (4.27-6.07)
== END 2020-04-20 13:21 | disposition home or self-care (01) ==
LOC: LAB 13:20
PROVIDERS: ATTEND Registered Nurse
DX: E78.5 Hyperlipidemia, unspecified (principal)
CPT/HCPCS: 36415; 83036

== ENCOUNTER 2021-03-09 12:22 | Outpatient (CLI) | payer MEDICARE ==
--- NOTE | 2021-03-09 16:12 | XRAY Report ---
PROCEDURE: Knee 2 View RT INDICATIONS: KNEE JOINT PAIN,RIGHT TECHNIQUE: 2 views of the right knee(s) were acquired. COMPARISON: X-ray knee 03/31/2014. FINDINGS: Bones: No fractures or dislocations. No suspicious bony lesions. There is moderate medial and ramesh llofemoral compartment narrowing and periarticular osteophytes. No definitive erosions. Mild interval progression is noted. Soft tissues: No joint effusion. No suspicious soft tissue calcifications. IMPRESSION: Medial and patellofemoral compartment narrowing with mild interval progression most cons istent with arthritis. Reviewed by: Amanda Blanchard MD on 03/09/2021 4:11 PM PDT Approved by: Amanda Blanchard MD on 03/09/2021 4:11 PM PDT Station ID: [id number]
== END 2021-03-09 12:23 | disposition home or self-care (01) ==
LOC: DI 12:22
PROVIDERS: ATTEND Internal Medicine
DX: M17.11 Unilateral primary osteoarthritis, right knee (principal)

== ENCOUNTER 2021-04-25 07:50 | Outpatient (CLI) | payer MEDICARE ==
[2021-04-25 08:28] LABS: BASOPHILS # (AUTO) 0.1 10^3/uL (0.0-0.1); BASOPHILS % (AUTO) 0.7 %; EOSINOPHILS # (AUTO) 0.2 10^3/uL (0.0-0.7); EOSINOPHILS % (AUTO) 2.7 %; HCT - HEMATOCRIT 38.9 % (37.0-47.0); HGB - HEMOGLOBIN 12.9 g/dL (12.0-16.0); LYMPHOCYTES # (AUTO) 1.5 10^3/uL (1.5-3.5); LYMPHOCYTES % (AUTO) 16.5 %; MEAN CORPUSCULAR HEMOGLOBIN 29.1 pg (27.0-31.0); MEAN CORPUSCULAR HGB CONC 33.2 g/dL (32.0-36.0); MEAN CORPUSCULAR VOLUME 87.8 fL (81.0-99.0); MEAN PLATELET VOLUME 9.9 fL (7.9-10.8); MONOCYTES # (AUTO) 0.9 10^3/uL (0.0-1.0); MONOCYTES % (AUTO) 10.3 %; NEUTROPHILS # (AUTO) 6.3 10^3/uL (1.5-6.6); NEUTROPHILS % (AUTO) 69.4 %; PLT - PLATELET COUNT 367 10^3/uL (130-450); RED BLOOD COUNT 4.43 10^6/uL (4.20-5.40); RED CELL DISTRIBUTION WIDTH 11.3 % (12.0-15.0)
[2021-04-25 08:45] LABS: ALBUMIN 3.9 g/dL (3.2-5.5); ALKALINE PHOSPHATASE 84 IU/L (42-121); ALT ALANINE AMINOTRANSFERASE 12 IU/L (10-60); AST ASPARTATE AMINOTRANSFERASE 14 IU/L (10-42); BILIRUBIN,TOTAL 0.7 mg/dL (0.2-1.0); BUN - BLOOD UREA NITROGEN 13 mg/dL (6-20); CALCIUM 9.4 mg/dL (8.5-10.3); CARBON DIOXIDE - CO2 28 mmol/L (21-32); CHLORIDE 104 mmol/L (101-111); CHOL/HDL RATIO 4.7 (<4.4); CHOLESTEROL 197 mg/dL; GFR - MDRD 55 (>89); GLUCOSE 135 mg/dL (70-100); HDL CHOLESTEROL 42 mg/dL; LDL CHOLESTEROL,CALCULATED 135 mg/dL; LDL/HDL RATIO 3.2 (<4.4); POTASSIUM 4.1 mmol/L (3.5-5.0); SODIUM 140 mmol/L (135-145); TOTAL PROTEIN 7.7 g/dL (6.7-8.2); TRIGLYCERIDES 99 mg/dL; VLDL CHOLESTEROL 20 mg/dL
== END 2021-04-25 07:51 | disposition home or self-care (01) ==
LOC: LAB 07:50
PROVIDERS: ATTEND Internal Medicine
DX: Z79.899 Other long term (current) drug therapy (principal); Z13.220 Encounter for screening for lipoid disorders
CPT/HCPCS: 36415; 80053; 80061; 83721; 85025

== ENCOUNTER 2021-05-07 08:30 | Outpatient (CLI) | payer MEDICARE ==
--- NOTE | 2021-05-07 12:46 | XRAY Report ---
PROCEDURE: Knee 4 View RT INDICATIONS: R KNEE PX TECHNIQUE: 4 views of the right knee acquired including a weightbearing bilateral AP view of both kn ees. COMPARISON: 03/09/2021. FINDINGS: Bones: No fractures or dislocations. Tricompartmental osteophytosis redemonstrated. There is moderat e joint space narrowing in the medial compartment with mild subchondral sclerosis which appears simil ar to the prior study. No suspicious bony lesions. Soft tissues: There is a minimal joint effusion. No suspicious soft tissue calcifications. IMPRESSION: 1. Tricompartmental osteoarthritic changes including moderate joint space narrowing in the medial com partment. Reviewed by: Raoul Heck MD on 05/07/2021 12:45 PM PDT Approved by: Raoul Heck MD on 05/07/2021 12:45 PM PDT Station ID: [id number]
--- NOTE | 2021-05-07 14:55 | XRAY Report ---
PROCEDURE: Tib/Fib RT INDICATIONS: STRESS FX, R TIBIA TECHNIQUE: 2 views of the tibia and fibula were acquired. COMPARISON: None. FINDINGS: Bones: No displaced fractures or dislocations. No definite periosteal reaction or suspicious sclero tic lines to suggest a stress reaction or stress fracture. Visualized osseous structures appear osteo penic. Soft tissues: No suspicious soft tissue calcifications or masses. IMPRESSION: 1. No definite radiographic evidence of stress reaction or stress fracture. If clinical concern persi sts, further evaluation may be obtained with MRI. Reviewed by: Raoul Heck MD on 05/07/2021 2:54 PM PDT Approved by: Raoul Heck MD on 05/07/2021 2:54 PM PDT Station ID: [id number]
== END 2021-05-07 23:59 | disposition home or self-care (01) ==
LOC: DI.N 08:30
PROVIDERS: ATTEND Orthopaedic Surgery
DX: M17.11 Unilateral primary osteoarthritis, right knee (principal)

== ENCOUNTER 2022-03-07 15:30 | Outpatient (CLI) | payer MEDICARE ==
--- NOTE | 2022-03-08 08:43 | DEXA Report ---
PROCEDURE: Dexa Spine and/or Hip INDICATIONS: POST MENOPAUSAL TECHNIQUE: Dual energy x-ray absorptiometry (DXA) was performed on a [employer] System. Regions measur ed are the AP Spine, femoral neck, and if needed forearm. COMPARISON: None. FINDINGS: Lumbar Spine: Bone Mineral Density 0.972 g/cm/cm,T score -1.8, osteopenia. Left Hip: Bone Mineral Density 0.635 g/cm/cm,T score -3.0, osteoporosis. Left Femoral Neck: Bone Mineral Density 0.602 g/cm/cm, T score -3.1, osteoporosis. (T score greater or equal to -1.0: NORMAL) (T score from -1.1 to -2.4: OSTEOPENIA) (T score less than or equal to -2.5 to: OSTEOPOROSIS) Impression: Based on WHO criteria, the patient has osteoporosis. Patients with diagnosis of osteoporosis or osteopenia should have regular bone mineral density assess ment. For those eligible for Medicare, routine testing is allowed once every 2 years. Testing frequ ency can be increased for patients who have rapidly progressing disease or for those who are receivin g medical therapy to restore bone mass. Reviewed by: Charity Kaur MD on 03/08/2022 8:42 AM PDT Approved by: Charity Kaur MD on 03/08/2022 8:42 AM PDT Station ID: [id number]
== END 2022-03-07 23:59 | disposition home or self-care (01) ==
LOC: DI 15:30
PROVIDERS: ATTEND Nurse Practitioner Family
DX: M81.0 Age-related osteoporosis without current pathological fracture (principal); Z78.0 Asymptomatic menopausal state

== ENCOUNTER 2022-03-20 10:42 | Outpatient (CLI) | payer MEDICARE ==
[2022-03-20 11:23] LABS: ALBUMIN 4.1 g/dL (3.2-5.5); ALBUMIN/GLOBULIN RATIO 1.2 (1.0-2.2); ALKALINE PHOSPHATASE 63 IU/L (42-121); ALT ALANINE AMINOTRANSFERASE 18 IU/L (10-60); AST ASPARTATE AMINOTRANSFERASE 21 IU/L (10-42); BILIRUBIN,TOTAL 0.5 mg/dL (0.2-1.0); BUN - BLOOD UREA NITROGEN 22 mg/dL (6-20); CALCIUM 9.5 mg/dL (8.5-10.3); CARBON DIOXIDE - CO2 28 mmol/L (21-32); CHLORIDE 105 mmol/L (101-111); CHOLESTEROL 246 mg/dL; CREATININE 1.1 mg/dL (0.4-1.0); GFR - MDRD 50 (>89); GLUCOSE 118 mg/dL (70-100); HDL CHOLESTEROL 49 mg/dL; LDL CHOLESTEROL,CALCULATED 180 mg/dL; LDL/HDL RATIO 3.7 (<4.4); POTASSIUM 4.1 mmol/L (3.5-5.0); SODIUM 141 mmol/L (135-145); TOTAL PROTEIN 7.4 g/dL (6.7-8.2); TRIGLYCERIDES 85 mg/dL; VLDL CHOLESTEROL 17 mg/dL
== END 2022-03-20 10:43 | disposition home or self-care (01) ==
LOC: LAB 10:42
PROVIDERS: ATTEND Nurse Practitioner Family
DX: M81.0 Age-related osteoporosis without current pathological fracture (principal); Z13.220 Encounter for screening for lipoid disorders
CPT/HCPCS: 36415; 80053; 80061; 82306; 83721

== ENCOUNTER 2023-04-09 10:10 | Outpatient (CLI) | payer MEDICARE ==
--- NOTE | 2023-04-10 11:36 | Mammography Report ---
BILATERAL DIGITAL SCREENING MAMMOGRAM 3D/2D: 04/09/2023 CLINICAL: Routine screening. Comparison is made to exams dated: 04/03/2022 mammogram - [facility], 04/15/2022 lino reotactic biopsy - [facility], 03/07/2022 mammogram, 12/05/2018 mammogram, and 06/18/2017 m ammogram - [facility]. There are scattered areas of fibroglandular density in both breasts (category b / 25%-50% glandular t issue). No significant masses, calcifications, or other findings are seen in either breast. There has been no significant interval change. IMPRESSION: NEGATIVE There is no mammographic evidence of malignancy. A 1 year screening mammogram is recommended. Based on the Tyrer Cuzick model (a risk assessment model) the patients lifetime risk is 3.4% and her 10 year risk is 1.9%. According to the ACR, ACS, and NCCN guidelines, an annual breast MRI exam todd g with mammogram is recommended if the patients lifetime risk is 20% or greater. This exam was interpreted at Station ID: [id number]. NOTE: For mammograms, a report in lay terms will be sent to the patient. Approximately 15% of breast malignancies will not be visualized mammographically. In the management of a palpable breast mass, a negative mammogram must not discourage biopsy of a clinically suspicious lesion. Electronically Signed By: Titus chavez/ap:04/09/2023 12:00:21 letter sent: No_Letter ACR BI-RADS Category 1: Negative 3341F PARENCHYMAL PATTERN: (A) - The breast(s) demonstrate(s) scattered fibroglandular densities. BI-RADS CATEGORY: (1) - 1 Mammogram [id number] 1 year screening LATERALITY: (B)
== END 2023-04-09 10:11 | disposition home or self-care (01) ==
LOC: DI 10:10
PROVIDERS: ATTEND Nurse Practitioner Family
DX: Z12.31 Encounter for screening mammogram for malignant neoplasm of breast (principal)

== ENCOUNTER 2023-07-08 16:48 | Emergency (ER) | payer MEDICARE ==
--- NOTE | 2023-07-08 19:29 | XRAY Report ---
PROCEDURE: Wrist 4 View RT INDICATIONS: Trauma TECHNIQUE: 3 views of the wrist were acquired. COMPARISON: None. FINDINGS: Bones: Impacted and comminuted fracture of the distal radius is present. There is extension to the a rticular surface. Radiocarpal alignment remains normal. There is a displaced and slightly comminuted ulnar styloid fracture. The lateral view demonstrates possible disruption at the distal radioulnar john int. There is a curvilinear opacity at the base of the first metacarpal of uncertain chronicity. Soft tissues: Moderate soft tissue swelling. No suspicious calcifications. IMPRESSION: 1. Comminuted, impacted, intra-articular distal radius fracture. 2. Comminuted ulnar styloid fracture. 3. Possible disruption of the distal radioulnar joint. 4. Possible avulsion fracture off the base of the first metacarpal. Reviewed by: Jeannie Elizalde MD on 07/08/2023 7:28 PM PST Approved by: Jeannie Elizalde MD on 07/08/2023 7:28 PM PST Station ID: [id number]
[2023-07-08] MEDS ORDERED: ONDANSETRON 4 MG/2 ML VIAL IVP STA (19:45)
[2023-07-08] MEDS ORDERED: HYDROmorphone 1 MG/ML CARPUJECT IVP STA ×2 (19:45)
--- NOTE | 2023-07-08 19:45 | ED Physician Documentation ---
PD HPI UPPER EXT INJURY - Stated complaint Stated Complaint: RT WRIST INJ - Chief complaint Chief Complaint: Trauma Ext - History obtained from History obtained from: Patient - Additonal information Additional information: HPI from patient. Approximately 4:10 PM today, the patient was chopping firewood in her yard when she tripped at and fell backwards. While falling, her right wrist struck the metallic object and she experienced sudden onset of right wrist pain associated with a deformity. The pain is distinctly worse with palpation, movement. She is left-hand dominant. She denies any other injury besides the right wrist. 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 PROMOTION: None : None HEENT: Chronic vision loss Psych: Depression Musculoskeletal: Osteoarthritis Derm: None - Past Surgical History Past Surgical History: Yes General: Appendectomy, Colonoscopy, EGD Ortho: Knee replacement, Rotator cuff repair /HEAD OF SALES PROMOTION: Hysterectomy, Oophrectomy HEENT: Tonsil/Adenoidectomy - Present Medications Home Medications: Ambulatory Orders Medication Instructions Recorded Confirmed Citalopram [CeleXA] 1 tab PO DAILY 04/14/18 07/08/23 HYDROcod/ACETAM 5/325 [Algonquin 5/325] 1 - 2 tablet PO Q6H PRN #14 tablet 07/08/23 Ondansetron Odt [Zofran Odt] 4 mg TL Q6H PRN #14 tablet 07/08/23 - Allergies Allergies/Adverse Reactions: Allergies Allergy/AdvReac Type Severity Reaction Status Date / Time codeine AdvReac Intermediate Nausea Verified 07/08/23 17:02 - Social History Does the pt smoke?: No Smoking Status: Never smoker Does the pt drink ETOH?: No Does the pt have substance abuse?: No - Immunizations Immunizations are current?: No Immunizations: TDAP >10years/unknown - POLST Patient has POLST: No PD ED PE NORMAL - Vitals Vital signs reviewed: Yes - General General: Alert and oriented X 3, No acute distress, Well developed/nourished - HEENT HEENT: Atraumatic, PERRL, EOMI PD ED PE EXPANDED - Extremities Extremities: Deformity, Tenderness, Limited ROM, Right wrist, Other (obvious deformity right wrist ("dinner fork" appearance). LTS intact in fingertips, normal color and brisk capillary refill in fingertips. ) Results - Vitals Vitals: Oxygen O2 Source Room air - Rads (name of study) right wrist xrays Relevant Findings:: Prelim report reviewed, See rad report post-reduction right wrist xrays Relevant Findings:: Prelim report reviewed, See rad report Procedures - Splint (location) - Minor Upper extremity right Splint applied by: Physician, Nurse Type of splint: Long arm, Sugar tong Other: Patient tolerated well, No complications, Neurovascular intact, Good alignment, Sling provided - Reduction Body part reduced: Right, Wrist Fracture or dislocation: Fracture Anesthesia: Dilaudid Reduction aftercare: NV intact, Xray confirms reduction, Alignment improved, Splint applied, Sling, Patient tolerated well PD Medical Decision Making - ED course Complexity details: reviewed results, re-evaluated patient, considered differential, d/w patient ED course: Presents with right wrist fracture (distal radius, ulnar styloid, possible disruption of distal radioulnar joint, possible avulsion off base of 1st metacarpal). She is given 2mg IV dilaudid with good analgesia (visually as well as per patient's report). I d/w patient option of conscious sedation; she is amenable to trying reduction with just the dilaudid but she is to stop the attempt at any time she is having significant discomfort. I was able to effect adequate reduction with patient reporting pain never was worse than tolerable levels for her. Splint placed as per procedure note, above. Post-reduction xrays do show improvement in alignment and she is appropriate for d/c home. Results d/w patient, return precautions reviewed. Instructed to seek follow up with orthopedic surgeon; ideally she should be reevaluated within 3-5 days but no more than 1 week. She is given prescriptions for Vicodin and zofran, with a take-home pack of vicodin and ondansetron prior to d/c. During ED stay, immediately after procedure (reduction and splinting) was completed, patient had n/v and was thus given 4mg IV zofran. Prior to d/c, she was given 4mg TL zofran for residual nausea. I am prescribing a short course of short-acting opioid pain medication for this patient. 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 I have discussed that the opioids are for short term therapy only, and will not be refilled from the ED. Departure - Departure Disposition: 01 Home, Self Care Clinical Impression: Wrist fracture, right Qualifiers: Encounter type: initial encounter Fracture type: closed Qualified Code(s): S62.101A - Fracture of unspecified carpal bone, right wrist, initial encounter for closed fracture Condition: Good Instructions: ED Sling, ED Splint Care Fiberglass, ED Fx Wrist General Follow-Up: Emanuel Arzate MD [Provider Admit Priv/Credential] - Prescriptions: HYDROcod/ACETAM 5/325 [Algonquin 5/325] 1 - 2 tablet PO Q6H PRN #14 tablet PRN Reason: Pain Ondansetron Odt [Zofran Odt] 4 mg TL Q6H PRN #14 tablet PRN Reason: Nausea / Vomiting Comments: You will need to follow-up with an orthopedic surgeon within the next 5 to 7 days. The contact information for the local orthopedic group is provided elsewhere on these discharge sheets; can contact that office at the phone number provided in the morning to arrange for follow-up appointment. I have electronically submitted prescriptions for Vicodin (narcotic/opiate pain medication) and ondansetron (anti-nausea medication) to the [facility] pharmacy in [place]. I am prescribing a short course of narcotic pain medication for you. These are potentially dangerous and addictive medications that should be used carefully. These medications may constipate you. Take an vjip-jni-nzrnrbo stool softener (docusate) twice daily with plenty of water while taking these medications. If you go 24 hours without a bowel movement, take bznc-juc-hcorpxo miralax, per package instructions. Do not drink or drive while taking these medications. If you received narcotic or sedating medications while in the emergency department, do not drive for 24 hours. Store this medication in a safe, secure place and out of reach of children. It is a violation of federal law to give or sell this medication to another person or to use in a manner other than prescribed. The ED will not refill narcotic prescriptions, including prescriptions lost or stolen. To dispose of unwanted medications: 1. [facility] at [address] in [place] has a medication drop box. They accept prescription medications (in pill form) Friday through Friday 9:00 a.m. to 5:00 p.m. 2. [facility] [employer] accepts prescription medications (in pill form only) for disposal year round. Call for more information. 3. Contact the [facility] for the next [facility] sponsored prescription drug collection event. , [phone], or [phone]; Forms: PCP List Discharge Date/Time: 07/08/23 21:55
[2023-07-08 20:30] VITALS: O2SAT 100
--- NOTE | 2023-07-08 20:48 | XRAY Report ---
PROCEDURE: Wrist 3 View RT INDICATIONS: post-reduction TECHNIQUE: 3 views of the wrist were acquired. COMPARISON: None. FINDINGS: Bones: Interval casting of the intra-articular fracture at the radial styloid. Decreased angulation. Similar alignment of the ulnar styloid fracture. Soft tissues: No suspicious soft tissue calcifications or masses. IMPRESSION: Interval casting, with decreased radial angulation. Reviewed by: Payam Jarrett on 07/08/2023 8:46 PM PST Approved by: Payam Jarrett on 07/08/2023 8:46 PM [facility] Station ID: [id number]
[2023-07-08] MEDS ORDERED: ONDANSETRON ODT 4 MG TABLET TL STA (21:15)
[2023-07-08] MEDS ORDERED: ONDANSETRON ODT 4 MG Prepack 2 TL PRN (21:15)
[2023-07-08] MEDS ORDERED: HYDROcod/ACET 5/325 Prepack 4 PO STA (21:15)
[2023-07-08 21:58] VITALS: BP 134/75
== END 2023-07-08 21:55 | disposition home or self-care (01) ==
LOC: ED 16:48
DX: S62.101A Fracture of unspecified carpal bone, right wrist, initial encounter for closed fracture (principal); W01.198A Fall on same level from slipping, tripping and stumbling with subsequent striking against other object, initial encounter; Y93.89 Activity, other specified; Y92.007 Garden or yard of unspecified non-institutional (private) residence as the place of occurrence of the external cause
CPT/HCPCS: 25605; 73110; 96374; 99283; J1170; Q0162

== ENCOUNTER 2023-07-15 08:00 | Outpatient (CLI) | payer MEDICARE ==
--- NOTE | 2023-07-15 11:08 | XRAY Report ---
PROCEDURE: Wrist 3 View RT INDICATIONS: RIGHT WRIST FRACTURE TECHNIQUE: 3 views of the wrist were acquired. COMPARISON: 07/08/2023 FINDINGS: Bones: Unchanged intra-articular fracture of the radial styloid. Unchanged mildly displaced fracture of the ulnar styloid. No significant bone remodeling or bone callus formation. Soft tissues: No suspicious soft tissue calcifications or masses. IMPRESSION: No interval change in appearance or alignment of the distal radial and ulnar styloid fractures. Reviewed by: Payam Jarrett on 07/15/2023 11:07 AM [facility] Approved by: Payam Jarrett on 07/15/2023 11:07 AM [facility] Station ID: [id number]
== END 2023-07-15 23:59 | disposition home or self-care (01) ==
LOC: DI.WOS 08:00
PROVIDERS: ATTEND Orthopaedic Surgery
DX: S52.511A Displaced fracture of right radial styloid process, initial encounter for closed fracture (principal); S52.611A Displaced fracture of right ulna styloid process, initial encounter for closed fracture

== ENCOUNTER 2023-07-16 06:14 | Day surgery (SDC) | payer MEDICARE ==
[2023-07-16] MEDS ORDERED: ceFAZolin 2 GM VIAL ONE (06:34)
[2023-07-16] MEDS: ACETAMINOPHEN 500 MG TABLET PO ONE ×2 (06:40→06:49)
[2023-07-16] MEDS: CELECOXIB 100 MG CAPSULE PO ONE ×2 (06:40→06:49)
[2023-07-16] MEDS ORDERED: LACTATED RINGERS 1,000 ML IV ONE (06:48)
[2023-07-16] MEDS ORDERED: LIDOCAINE-PF 2% 10 ML AMP SUBQ ONE (07:05)
[2023-07-16] MEDS ORDERED: ROPIVACAINE 0.5% PF 20 ML VIAL ONE (07:05)
[2023-07-16] MEDS ORDERED: MORPHINE 2 MG/ML CARPUJECT IVP PRN (07:06)
[2023-07-16] MEDS ORDERED: ATROPINE ABBOJECT 1 MG/10 ML SYRINGE IVP PRN (07:06)
[2023-07-16] MEDS ORDERED: HYDROmorphone 0.5 MG/0.5 ML SYRINGE IVP PRN (07:06)
[2023-07-16] MEDS ORDERED: METOCLOPRAMIDE 10 MG/2 ML VIAL IVP PRN (07:06)
[2023-07-16] MEDS ORDERED: NALOXONE 0.4 MG/ML VIAL IVP PRN (07:06)
[2023-07-16] MEDS ORDERED: ONDANSETRON 4 MG/2 ML VIAL IVP PRN (07:06)
[2023-07-16] MEDS ORDERED: fentaNYL 100 MCG/2 ML VIAL IVP PRN (07:06)
[2023-07-16] MEDS ORDERED: ePHEDrine 50 MG/ML VIAL IVP PRN (07:06)
--- NOTE | 2023-07-16 07:06 | ANESTHESIA ---
Pre-Anesthesia VS, & Labs - Diagnosis Fx r distal radius - Procedure closed reduction perc pin, R radius Vital Signs: Temp Pulse Resp BP Pulse Ox O2 Flow Rate 36.3 C L 74 18 145/76 H 96 07/16/23 06:53 07/16/23 06:53 07/16/23 06:53 07/16/23 06:53 07/16/23 06:53 Height: 5 ft 2 in Weight (kg): 86.8 kg Body Mass Index: 34.9 BMI Classification: Obese - NPO >8 hours Last Fluid Intake: sips with ERAS meds - Is Patient ?: No - Lab Results Lab results reviewed: Yes Home Medications and Allergies Citalopram [CeleXA] 1 tab PO DAILY 04/14/18 Allergies/Adverse Reactions: Allergies Allergy/AdvReac Type Severity Reaction Status Date / Time codeine AdvReac Intermediate Nausea Verified 07/16/23 06:46 Anes History & Medical History - Anesthetic History Anesthesia Complications: reports: No previous complications Family history of Anesthesia Complications: Denies Family history of Malignant Hyperthermia: Denies - Medical History Cardiovascular: reports: None Pulmonary: reports: None Gastrointestinal: reports: Hiatal hernia Urinary: reports: None Neuro: reports: None Musculoskeletal: reports: Osteoarthritis Endocrine/Autoimmune: reports: None Blood Disorders: reports: None Skin: reports: None Smoking Status: Never smoker - Surgical History General: reports: Appendectomy, Colonoscopy, EGD Eyes Ears Nose Throat (EENT): reports: Tonsil/Adenoidectomy Gynecologic: reports: Hysterectomy, Oophrectomy Orthopedic: reports: Knee replacement, Rotator cuff repair, Other (L wrist closed reduction) Exam General: Alert, Oriented x3, Cooperative Dental: WNL Mouth Openin Fingerbreadth Neck Mobility: Normal Mallampati classification: II Thyromental Distance: 4-6 cm Respiratory: Lungs clear, Normal breath sounds, No respiratory distress Cardiovascular: Regular rate Neurological: Normal speech Mental/Cognitive Status: Alert/Oriented X3, Normal for patient Cognitive Status: Within normal limits Plan Anesthesia Type: MAC, Supraclavicular Block Consent for Procedure(s) Verified and Reviewed: Yes Code Status: Attempt Resuscitation ASA classification: 2-Mild systemic disease Is this case an emergency?: No
[2023-07-16] MEDS ORDERED: fentaNYL 100 MCG/2 ML VIAL ONE (07:07)
[2023-07-16] MEDS ORDERED: MIDAZOLAM 2 MG/2 ML VIAL ONE (07:07)
[2023-07-16] MEDS ORDERED: LIDOCAINE 1%-EPI 1:100000 20 ML MDV ONE (07:28)
[2023-07-16] MEDS ORDERED: BUPIVACAINE 0.5% PF 10 ML VIAL ONE (07:29)
[2023-07-16] MEDS ORDERED: LACTATED RINGERS 1,000 ML IV SCH (08:00)
[2023-07-16] MEDS ORDERED: LACTATED RINGERS 500 ML IV ONE (08:30)
[2023-07-16] MEDS ORDERED: oxyCODONE 5 MG TABLET PO PRN (08:32)
[2023-07-16] MEDS ORDERED: CELECOXIB 100 MG CAPSULE PO PRN (08:32)
[2023-07-16] MEDS ORDERED: ACETAMINOPHEN 500 MG TABLET PO PRN (08:32)
--- NOTE | 2023-07-16 08:37 | OPERATIVE REPORT ---
Operative Report - General Procedure Date: 07/16/23 Planned Procedure: Closed reduction right distal radius, percutaneous K wire fixation Pre-Op Diagnosis: Closed, displaced, comminuted right distal radius fracture Procedure Performed: Close reduction right distal radius, Multiple percutaneous K wire fixation Post Op Diagnosis: Same as preoperative diagnosis - Procedure Note Primary Surgeon: Emanuel Arzate MD Secondary Surgeon: Ada SOLORIO Anesthesia Provider: Isrrael Ruvalcaba CRNA Anesthesia Technique: Moderate sedation, Regional block Estimated Blood Loss (mL): 1 Indications: This is a 68-year-old woman with a history of a ground-level fall that occurred outdoors about 8 days ago. She had pain and deformity to her right wrist and was seen in the emergency room where she had an attempted closed reduction and splint application. She was seen in my office 2 days ago where she still had persistence of displaced fracture to right distal radius and ulnar styloid. Her skin was intact to right wrist, 1 cm superficial blister over radial aspect of right wrist, neurovascular intact, tendon function intact, tenderness to right distal radius and ulna and limited right wrist motion. Her x-rays show a comminuted angulated fracture of the right distal radius with shortening with intra-articular communication of fracture of radial styloid. She also has osteopenia. An informed consent was obtained for closed reduction percutaneous pinning of the right distal radius Findings: The displaced intra-articular and comminuted distal radius fracture was again noted on C arm imaging Complications: None - Other Other Information/Narrative: . The patient was brought to the operating room and was placed in a supine position with the right arm on a arm extension table. The patient received a regional block with supplemental sedation. The right upper extremity was prepped and draped in a sterile manner in the usual fashion. The C-arm image intensifier was utilized and covered with a sterile drape. A timeout procedure was performed by the entire operating room team and all were in agreement. Finger traps were applied to all 5 fingers with a traction bow as well. Longitudinal traction was applied, direct manipulation of the fracture site over a sterile bump. The C-arm image intensifier showed good alignment and a percutaneous pinning was performed with 0.062 K wires. The bare area of the radial styloid was engaged and pin was inserted from the styloid across the fracture to achieve bicortical fixation. An additional 2 K wire from the radial styloid were also inserted to provide 3 bicortical K wires from the radial styloid. 1 additional K wires were inserted from the ulnar corner of the distal radius distally and this was driven from distal to proximal and ulnar to radial. Biplanar and oblique imaging was obtained and there was good alignment of the fixation and fracture. The K wires were cut external to skin and covered with sterile balls. A well-padded short arm fiberglass splint was applied with gauze padding around the K wires. The patient tolerated the procedure well. No tourniquet was utilized.A physician first assistant was medically necessary to help with prepping and draping, positioning, protection of vital structures, assistance during the procedure including traction, dressing and/or splinting.
--- NOTE | 2023-07-16 08:39 | ANESTHESIA POST OP EVALUATION ---
Anesthesia Post Eval - Post Anesthesia Eval Vitals: Last Vital Signs Temp 36.3 C L 07/16/23 08:30 Pulse 70 07/16/23 08:30 Resp 14 07/16/23 08:30 BP 183/83 H 07/16/23 08:30 Pulse Ox 98 07/16/23 08:30 O2 Flow Rate CV Function Including HR & BP: Stable Pain Control: Satisfactory Nausea & Vomiting: Negative Mental Status: Baseline Respiratory Status: Airway Patent Hydration Status: Satisfactory Anesthesia Complications: None
[2023-07-16] MEDS ORDERED: ONDANSETRON 4 MG/2 ML VIAL IVP ONE (09:00)
[2023-07-16] MEDS ORDERED: ONDANSETRON 4 MG/2 ML VIAL ONE (09:06)
[2023-07-16 09:10] VITALS: BP 188/92; O2SAT 96
--- NOTE | 2023-07-16 13:56 | XRAY Report ---
PROCEDURE: OR C-Arm Procedure INDICATIONS: CLOSED REDUCTION PERCUTANEOUS PINNING FLUORO TIME: 0:12 MIN TECHNIQUE: 3 intraoperative fluoroscopic images COMPARISON: None. FINDINGS: 3 intraoperative fluoroscopic images of percutaneous pinning of distal radius fracture are provided f or nondiagnostic interpretation. Please see operative report for details. Fluoroscopy time: 0.12 minutes Cumulative dose: 1.293 mGy IMPRESSION: 3 intraoperative fluoroscopic images of percutaneous pinning of distal radius. Please see operative r eport for details. Reviewed by: Mary Jo Diaz MD on 07/16/2023 1:47 PM PST Approved by: Mary Jo Diaz MD on 07/16/2023 1:47 PM PST Station ID: [id number]
== END 2023-07-16 06:15 | disposition home or self-care (01) ==
LOC: SDS 06:14
PROVIDERS: ATTEND Orthopaedic Surgery
DX: S52.531A Colles' fracture of right radius, initial encounter for closed fracture (principal); E66.9 Obesity, unspecified; Z68.34 Body mass index [BMI] 34.0-34.9, adult
CPT/HCPCS: 25606; A9270; C1713; J2795; J7120

== ENCOUNTER 2023-07-21 14:32 | Outpatient (CLI) | payer MEDICARE ==
--- NOTE | 2023-07-21 16:43 | XRAY Report ---
PROCEDURE: Wrist 2 View RT INDICATIONS: RIGHT WRIST PINNING TECHNIQUE: 3 views of the wrist were acquired. COMPARISON: 07/15/2023, 07/16/2023. FINDINGS: Bones: There is interval surgical pinning of distal radial. Impacted and comminuted distal radial fr acture is again seen. No gross hardware loosening of failure. No new fracture or dislocation. Osteoar thritic changes are noted throughout right wrist. No No suspicious bony lesions. Soft tissues: No suspicious soft tissue calcifications or masses. IMPRESSION: Post fixation changes are seen in distal radius with comminuted and impacted distal radial fracture n ot significantly changed from prior study. No gross hardware loosening or failure. No new fracture or dislocation. Reviewed by: Dago Siegel MD on 07/21/2023 4:42 PM PST Approved by: Dago Siegel MD on 07/21/2023 4:42 PM PST Station ID: [id number]
== END 2023-07-21 23:59 | disposition home or self-care (01) ==
LOC: DI.WOS 14:32
PROVIDERS: ATTEND Orthopaedic Surgery
DX: S52.531D Colles' fracture of right radius, subsequent encounter for closed fracture with routine healing (principal)

== ENCOUNTER 2023-07-28 08:39 | Day surgery (SDC) | payer MEDICARE ==
[2023-07-28] MEDS ORDERED: LACTATED RINGERS 1,000 ML IV ONE (08:50)
--- NOTE | 2023-07-28 10:08 | ANESTHESIA ---
Pre-Anesthesia VS, & Labs - Diagnosis screening exam - Procedure colonoscopy Vital Signs: Temp Pulse Resp BP Pulse Ox O2 Flow Rate 36.3 C L 79 16 129/80 98 07/28/23 08:50 07/28/23 08:50 07/28/23 08:50 07/28/23 08:50 07/28/23 08:50 Height: 5 ft 2 in Weight (kg): 83.6 kg Body Mass Index: 33.7 BMI Classification: Obese - NPO >8 hours - Is Patient ?: No Home Medications and Allergies Home Medications: Ambulatory Orders Alendronate [Fosamax] 70 mg ORAL OAW 07/25/23 Citalopram [CeleXA] 1 tab PO DAILY 04/14/18 Alendronate [Fosamax] 70 mg ORAL OAW 07/25/23 Allergies/Adverse Reactions: Allergies Allergy/AdvReac Type Severity Reaction Status Date / Time codeine AdvReac Intermediate Nausea Verified 07/16/23 06:46 Anes History & Medical History - Anesthetic History Anesthesia Complications: reports: No previous complications - Medical History Cardiovascular: reports: None Pulmonary: reports: None Gastrointestinal: reports: Hiatal hernia, Colon polyps Urinary: reports: None Neuro: reports: None Musculoskeletal: reports: Osteoarthritis Endocrine/Autoimmune: reports: None Blood Disorders: reports: None Skin: reports: None Smoking Status: Never smoker Psychosocial: reports: No issues indicated History of Cancer?: No - Surgical History General: reports: Appendectomy, Colonoscopy, EGD Eyes Ears Nose Throat (EENT): reports: Tonsil/Adenoidectomy Gynecologic: reports: Hysterectomy, Oophrectomy Orthopedic: reports: Knee replacement, Rotator cuff repair Exam General: Alert, Oriented x3, Cooperative, No acute distress Dental: WNL Mouth Openin Fingerbreadth Neck Mobility: Normal Mallampati classification: III Thyromental Distance: 4-6 cm Mental/Cognitive Status: Alert/Oriented X3, Normal for patient Plan Anesthesia Type: General, Total IV Consent for Procedure(s) Verified and Reviewed: Yes Code Status: Attempt Resuscitation ASA classification: 2-Mild systemic disease Is this case an emergency?: No
[2023-07-28] MEDS ORDERED: PROPOFOL 500 MG/50 ML 500 MG/50 ML VIAL ONE (10:21)
[2023-07-28] MEDS ORDERED: LACTATED RINGERS 400 ML IV ONE (11:40)
[2023-07-28 12:00] VITALS: BP 124/70; O2SAT 99
--- NOTE | 2023-07-28 14:10 | ANESTHESIA POST OP EVALUATION ---
Anesthesia Post Eval - Post Anesthesia Eval Vitals: Last Vital Signs Temp 36.4 C L 07/28/23 11:40 Pulse 79 07/28/23 11:55 Resp 18 07/28/23 11:55 BP 124/70 07/28/23 11:55 Pulse Ox 99 07/28/23 11:55 O2 Flow Rate CV Function Including HR & BP: Stable Pain Control: Satisfactory Nausea & Vomiting: Negative Mental Status: Baseline Respiratory Status: Airway Patent Hydration Status: Satisfactory Anesthesia Complications: None
== END 2023-07-28 08:40 | disposition home or self-care (01) ==
LOC: SDS 08:39
PROVIDERS: ATTEND Surgery
DX: Z12.11 Encounter for screening for malignant neoplasm of colon (principal); R19.5 Other fecal abnormalities; Z87.19 Personal history of other diseases of the digestive system; E66.9 Obesity, unspecified; Z68.33 Body mass index [BMI] 33.0-33.9, adult
CPT/HCPCS: G0121; J7120

== ENCOUNTER 2023-08-12 08:00 | Outpatient (CLI) | payer MEDICARE ==
--- NOTE | 2023-08-12 14:29 | XRAY Report ---
PROCEDURE: Wrist 3 View RT INDICATIONS: RIGHT WRIST FRACTURE TECHNIQUE: 3 views of the wrist were acquired. COMPARISON: Multiple prior radiographs 07/21/2023, 07/08/2023. FINDINGS: Bones: K wires have been removed. Ongoing healing of the distal radius fracture. Stable alignment. U lnar styloid fracture is unchanged. Minimal displacement. No fractures or dislocations. No suspiciou s bony lesions. Soft tissues: No suspicious soft tissue calcifications or masses. IMPRESSION: Ongoing healing of the distal radius and ulnar styloid fractures. K wires have been removed. Reviewed by: Bryant Douglass MD on 08/12/2023 2:27 PM PST Approved by: Bryant Douglass MD on 08/12/2023 2:27 PM PST Station ID: [id number]
== END 2023-08-12 23:59 | disposition home or self-care (01) ==
LOC: DI.WOS 08:00
PROVIDERS: ATTEND Orthopaedic Surgery
DX: S52.531D Colles' fracture of right radius, subsequent encounter for closed fracture with routine healing (principal)